=== PATIENT | female | born 1960 | race Caucasian/White ===

== ENCOUNTER 2017-10-12 09:41 | Emergency (ER) | payer OTHER ==
[~2017-10-12] VITALS: Ht 165.1 cm; Wt 102.0 kg
[~2017-10-12 09:41] MED LIST: BENA25TA5 PO; CEPALOZ SUCK-ON; CYCL-36 PO; DIOV160T6 PO; FLUO40CA PO; GABA300C3 PO; GLIP5 PO; GLUCTAB PO; LANTUS2P SC; LEVO175T2 PO; NITR0.4S SL; PENI500T PO; PRED50TA PO; SUCR1TAB PO; ZOFR4TAB3 SL
[2017-10-12 09:51] VITALS: BP 140/73; PULSE 82; RESP 18; TEMP 99.8; O2SAT 94
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
[2017-10-12] MEDS ORDERED: ONDANSETRON HCL 4 MG/2 ML VIAL IM ONE (10:30)
[2017-10-12] MEDS ORDERED: MORPHINE SULFATE 8 MG/ML INJ IM ONE (10:30)
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
[2017-10-12] MEDS ORDERED: NOVOLOGP2 SQ (11:03)
[2017-10-12] MEDS ORDERED: LANTUS2P SQ (11:03)
[2017-10-12] MEDS ORDERED: GABA800T PO (11:03)
[2017-10-12] MEDS ORDERED: PRED1 PO (11:03)
[2017-10-12] MEDS ORDERED: DIOV320T PO (11:09)
[2017-10-12] MEDS ORDERED: TRAZ50TA12 PO (11:09)
[2017-10-12] MEDS ORDERED: FLUO40CA PO (11:09)
[2017-10-12] MEDS ORDERED: CYCL10TA PO (11:09)
[2017-10-12] MEDS ORDERED: GLIP10TA6 PO (11:09)
[2017-10-12] MEDS ORDERED: METF-382 PO (11:09)
[2017-10-12] MEDS ORDERED: LINA2.5T5 PO (11:09)
[2017-10-12] MEDS ORDERED: LEVO50TA4 PO (11:09)
[2017-10-12] MEDS ORDERED: FURO1TAB62 PO (11:09)
[2017-10-12] MEDS ORDERED: METO25TA3 PO (11:09)
[2017-10-12] MEDS ORDERED: LATA0.002 EACH EYE (11:09)
[2017-10-12] MEDS ORDERED: SUCR1TAB PO (11:09)
[2017-10-12] MEDS ORDERED: HYDR-3583 (11:09)
[2017-10-12] MEDS ORDERED: DEXI30CA2 (11:09)
[2017-10-12] MEDS ORDERED: AMLO10TA2 PO (11:09)
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
[2017-10-12] MEDS ORDERED: PERC10TA27 PO (12:10)
[2017-10-12] MEDS ORDERED: BACT800T5 PO (12:10)
[2017-10-12 12:29] VITALS: BP 138/74
[2017-10-12 12:30] VITALS: RESP 18
== END 2017-10-12 12:31 | disposition home or self-care (01) ==
LOC: PHED 09:41
DX: S16.1XXA Strain of muscle, fascia and tendon at neck level, initial encounter (principal); S39.012A Strain of muscle, fascia and tendon of lower back, initial encounter; J45.909 Unspecified asthma, uncomplicated; F32.9 Major depressive disorder, single episode, unspecified; I10 Essential (primary) hypertension; E78.00 Pure hypercholesterolemia, unspecified; E11.9 Type 2 diabetes mellitus without complications; F17.210 Nicotine dependence, cigarettes, uncomplicated; Z88.1 Allergy status to other antibiotic agents; V89.2XXA Person injured in unspecified motor-vehicle accident, traffic, initial encounter
CPT/HCPCS: 71046; 72125; 72131; 87804; 96372; 99284; J2270; J2405